=== PATIENT | female | born 1995 | race Caucasian/White ===

== ENCOUNTER 2017-11-11 08:23 | Emergency (ER) | payer OTHER ==
[2017-11-11 08:42] VITALS: BP 111/67; PULSE 104; RESP 18; TEMP 99.3
--- NOTE | 2017-11-11 09:08 | ED ---
General Adult HPI - General Chief complaint: ENT Stated complaint: Face/ear swelling Time Seen by Provider: 11/11/17 08:49 Source: patient, RN notes reviewed Mode of arrival: ambulatory Limitations: no limitations - History of Present Illness Initial comments: 22-year-old female presents to the emergency department with a chief complaint of cough cold -like symptoms with bilateral facial swelling and ear swelling. Patient states it started when she woke up this morning. Yesterday she had a little bit of cough and a low-grade. She states it hurts to touch or move the ears. She denies any nausea vomiting with this. She denies any throat pain. She denies any production of the cough. Family is sick with a cold but this was very unusual states that they should be seen. No significant health history in the child. No other symptoms.Patient denies any recent shortness of breath, chest pain, back pain, abdominal pain, nausea vomiting, numbness or tingling, dysuria or hematuria, constipation or diarrhea, headaches or visual changes, or any other current symptoms. - Related Data Home Medications Medication Instructions Recorded Confirmed D-Methorphan/PE/Acetaminophen 1 cap PO Q6H PRN 11/11/17 11/11/17 [Vicks Dayquil Liquicaps] Loratadine [Claritin] 10 mg PO DAILY 11/11/17 11/11/17 Previous Rx's Medication Instructions Recorded Amoxicillin/Potassium Clav 1 tab PO Q12HR #20 tab 11/11/17 [Augmentin 875-125 Tablet] Allergies Allergy/AdvReac Type Severity Reaction Status Date / Time No Known Allergies Allergy Verified 11/11/17 08:54 Review of Systems ROS Statement: Those systems with pertinent positive or pertinent negative responses have been documented in the HPI. ROS Other: All systems not noted in ROS Statement are negative. Past Medical History Past Medical History: No Reported History History of Any Multi-Drug Resistant Organisms: None Reported Additional Past Surgical History / Comment(s): cyst removed from chest Past Psychological History: No Psychological Hx Reported Smoking Status: Never smoker Past Alcohol Use History: Occasional Past Drug Use History: None Reported General Exam - General Exam Comments Initial Comments: General exam: Alert, active, comfortable in no apparent distress Head: Normocephalic Eyes: Normal reaction of pupils, equal size, normal range of extraocular motion Ears: normal external ear canals, pink tympanic membranes with normal cone of light, no mastoid tenderness patient does appear to have a red swollen bilateral ears. Nose: clear with pink turbinates Throat: no erythema or exudates with normal sized tonsils Neck: no masses, no nuchal rigidity Chest: no chest wall deformity Lungs: equal air entry with no crackles or wheeze CVS: S1 and S2 normal with no audible mumurs, regular rhythm Abdomen: no hepatosplenomegaly, normal bowel sounds, no guarding or rigidity Spine: no scoliosis or deformity Skin: no rashes Neurological: No focal deficits, tone is normal in all 4 extremities Limitations: no limitations Course Vital Signs 11/11/17 08:39 Temperature 99.3 F Pulse Rate 104 H Respiratory 18 Rate Blood Pressure 111/67 O2 Sat by Pulse 98 Oximetry Medical Decision Making - Medical Decision Making 22-year-old female presents for cough cold like symptoms. She has swollen ears. This time we will start her on Augmentin due to the fact concern for bacterial origin of the patient's illness. We did discuss return parameters and follow-up and residential. We discussed all the patient's family's questions. They stated the Ben management this plan. All questions have been answered. They will be discharged. Disposition Clinical Impression: Upper respiratory infection Disposition: HOME SELF-CARE Condition: Stable Instructions: Upper Respiratory Infection (ED) Additional Instructions: Please use medication as discussed. Please follow up with family doctor if symptoms have not improved over the next two days. Please return to the emergency room if your symptoms increase or worsen or for any other concerns. Prescriptions: Amoxicillin/Potassium Clav [Augmentin 875-125 Tablet] 1 tab PO Q12HR #20 tab Referrals: Saul Rand DO [Primary Care Provider] - 1-2 days Time of Disposition: 09:08
== END 2017-11-11 09:18 | disposition home or self-care (01) ==
LOC: EC 08:23
DX: J06.9 Acute upper respiratory infection, unspecified (principal); H93.8X3 Other specified disorders of ear, bilateral; R22.0 Localized swelling, mass and lump, head; Z79.899 Other long term (current) drug therapy
CPT/HCPCS: 99283

== ENCOUNTER 2019-02-07 00:43 | Emergency (ER) | payer BC, OTHER ==
[2019-02-07 00:55] VITALS: BP 127/80; PULSE 74; RESP 20; TEMP 98.2
--- NOTE | 2019-02-07 00:58 | ED ---
Burn/Smoke HPI - General Chief complaint: Burn/Smoke Inhalation Stated complaint: Hand burn injury/[facility]HS Time Seen by Provider: 02/07/19 00:56 Source: patient, family Mode of arrival: ambulatory Limitations: no limitations - History of Present Illness Initial comments: Urine is a pleasant right hand dominant 23-year-old female presents the emergency department today from work for evaluation of possible burn to the middle and ring finger of her right hand. Patient reports that she was working at [employer] when she inadvertently dipped her hand in the deep fryer. She reports that it was very quick she may remove her hand from the fryer, rinsed it in cold water and was given a lidocaine patch by one of her coworkers. She then was advised to come the ER for evaluation. Upon arrival patient reports the fingers are sensitive and painful she's not noticed any blistering or color change to the skin. - Related Data Home Medications Medication Instructions Recorded Confirmed D-Methorphan/PE/Acetaminophen 1 cap PO Q6H PRN 11/11/17 11/11/17 [Vicks Dayquil Liquicaps] Loratadine [Claritin] 10 mg PO DAILY 11/11/17 11/11/17 Previous Rx's Medication Instructions Recorded Amoxicillin/Potassium Clav 1 tab PO Q12HR #20 tab 11/11/17 [Augmentin 875-125 Tablet] Allergies Allergy/AdvReac Type Severity Reaction Status Date / Time No Known Allergies Allergy Verified 02/07/19 00:55 Review of Systems ROS Statement: Those systems with pertinent positive or pertinent negative responses have been documented in the HPI. ROS Other: All systems not noted in ROS Statement are negative. Past Medical History Past Medical History: No Reported History History of Any Multi-Drug Resistant Organisms: None Reported Additional Past Surgical History / Comment(s): cyst removed from chest Past Psychological History: No Psychological Hx Reported Smoking Status: Never smoker Past Alcohol Use History: Occasional Past Drug Use History: None Reported General Exam - General Exam Comments Initial Comments: Physical Exam GENERAL: Patient is well-developed and well-nourished. Patient is nontoxic and well-hydrated and is in no distress. HENT: Normocephalic, Atraumatic. EYES: PERRL, EOMI PULMONARY: Unlabored respirations CARDIOVASCULAR: RRR ABDOMEN: Nondistended SKIN: Skin is clear with no lesions or rashes and otherwise unremarkable. Middle and ring finger are erythematous with no blistering : Deferred NEUROLOGIC: Patient is alert and oriented x3. Moving all extremities spontaneously MUSCULOSKELETAL: Normal extremities with adequate strength and full range of motion. No lower extremity swelling or edema. No calf tenderness. Full range of motion of the fingers on hands bilaterally PSYCHIATRIC: Normal psychiatric evaluation. Limitations: no limitations Limitations: no limitations Course Vital Signs 02/07/19 00:50 Temperature 98.2 F Pulse Rate 74 Respiratory 20 Rate Blood Pressure 127/80 O2 Sat by Pulse 97 Oximetry Medical Decision Making - Medical Decision Making The patient was seen and evaluated history is obtained from the patient inadvertently dipped her hand in hot oil at work, on evaluation it seems to be only superficial burning with some erythema there are no blisters there is no sensation or any signs of deep maddox Patient has full range of motion Patient will be provided with a work note Advised the patient keep a close eye on her hand, if she develops any blistering or decreased range of motion she needs to be reevaluated possibly transferred to burn unit. I do not suspect this happen is that his arty been nearly 2 hours since the burn. There is no blistering therefore patient does not T Do[employer] vaccination All questions pertaining care were answered return parameters were discussed the patient was discharged home in stable condition. Disposition Clinical Impression: Burn of hand including fingers Disposition: HOME SELF-CARE Condition: Stable Instructions (If sedation given, give patient instructions): Superficial Burn (DC), Second Degree Burn (ED) Is patient prescribed a controlled substance at d/c from ED?: No Referrals: Saul Rand DO [Primary Care Provider] - 1-2 days
== END 2019-02-07 01:54 | disposition home or self-care (01) ==
LOC: EC 00:43
DX: T23.131A Burn of first degree of multiple right fingers (nail), not including thumb, initial encounter (principal); T31.0 Burns involving less than 10% of body surface; Z79.899 Other long term (current) drug therapy; X10.2XXA Contact with fats and cooking oils, initial encounter; Y92.511 Restaurant or cafe as the place of occurrence of the external cause; Y99.0 Civilian activity done for income or pay
CPT/HCPCS: 99283

== ENCOUNTER 2021-09-22 16:13 | Emergency (ER) | payer OTHER ==
[2021-09-22 17:27] VITALS: RESP 18
[2021-09-22] MEDS ORDERED: guaiFENesin-DM 600/30MG 1 EACH TAB.ER.12H PO STA (19:37)
[2021-09-22] MEDS ORDERED: dexAMETHasone 2 MG TAB PO STA (19:37)
--- NOTE | 2021-09-22 20:01 | ED ---
URI HPI - General Chief Complaint: Upper Respiratory Infection Stated Complaint: wants covid test Time Seen by Provider: 09/22/21 19:12 Source: patient Mode of arrival: ambulatory Limitations: no limitations - History of Present Illness Initial Comments: 25-year-old female patient presents to the emergency department today for evaluation of cough, fatigue, body aches. States she's had symptoms for the last 3 days. She is concerned she may have COVID-19. Denies taking any medication for her symptoms. Denies any fever or chills. Denies shortness of breath. Denies chance of . She is otherwise healthy does not take any medications. Patient denies any recent rash, chest pain, abdominal pain, nausea, vomiting, diarrhea, constipation, back pain, numbness, tingling, dizziness, weakness, hematuria, dysuria, urinary urgency, urinary frequency, headache, visual changes, or any other complaints. - Related Data Home Medications Medication Instructions Recorded Confirmed D-Methorphan/PE/Acetaminophen 1 cap PO Q6H PRN 11/11/17 11/11/17 [Vicks Dayquil Liquicaps] Loratadine [Claritin] 10 mg PO DAILY 11/11/17 11/11/17 Previous Rx's Medication Instructions Recorded Amoxicillin/Potassium Clav 1 tab PO Q12HR #20 tab 11/11/17 [Augmentin 875-125 Tablet] Dexamethasone 6 mg PO DAILY #9 tablet 09/22/21 guaiFENesin-DM 600/30MG [Mucinex 2 each PO Q12HR PRN #20 tab 09/22/21 Dm] Allergies Allergy/AdvReac Type Severity Reaction Status Date / Time No Known Allergies Allergy Verified 02/07/19 00:55 Review of Systems ROS Statement: Those systems with pertinent positive or pertinent negative responses have been documented in the HPI. ROS Other: All systems not noted in ROS Statement are negative. Past Medical History Past Medical History: No Reported History History of Any Multi-Drug Resistant Organisms: None Reported Additional Past Surgical History / Comment(s): cyst removed from chest Past Psychological History: No Psychological Hx Reported Smoking Status: Former smoker Past Alcohol Use History: Occasional Past Drug Use History: None Reported General Exam Limitations: no limitations General appearance: alert, in no apparent distress, other (This is a well- developed, well-nourished adult female in no acute distress.) ENT exam: Present: normal exam, normal oropharynx, mucous membranes moist Respiratory exam: Present: normal lung sounds bilaterally. Absent: respiratory distress, wheezes, rales, rhonchi, stridor Cardiovascular Exam: Present: regular rate, normal rhythm, normal heart sounds. Absent: systolic murmur, diastolic murmur, rubs, gallop, clicks GI/Abdominal exam: Present: soft, normal bowel sounds. Absent: distended, tenderness, guarding, rebound, rigid Neurological exam: Present: alert, oriented X3, CN II-XII intact Psychiatric exam: Present: normal affect, normal mood Skin exam: Present: warm, dry, intact, normal color. Absent: rash Course Vital Signs 09/22/21 09/22/21 17:25 19:35 Temperature 98.8 F 98.0 F Pulse Rate 94 86 Respiratory 18 18 Rate Blood Pressure 123/80 133/94 O2 Sat by Pulse 96 99 Oximetry Medical Decision Making - Medical Decision Making 25-year-old female patient presented for evaluation of cough, congestion, body aches for the last few days. She did test positive for COVID-19. Chest x-ray is negative. She has normal vital signs. She is given dose of Mucinex DM and a dose of Decadron. She does not meet criteria to receive monoclonal antibodies. She will be discharged with instructions to increase fluids, obtain [id number] vitamins. Return parameters were discussed in detail. She verbalizes understanding and agrees with this plan. My attending is Dr. Chatterjee. - Lab Data Lab Results 09/22/21 Range/Units 17:38 Coronavirus (PCR) Detected A (Not Detectd) - Radiology Data Radiology results: report reviewed, image reviewed One view x-ray of the chest is obtained. Report was reviewed in its entirety. Impression by Dr. Lidnsay shows normal chest. Disposition Clinical Impression: COVID-19 Disposition: HOME SELF-CARE Condition: Good Instructions (If sedation given, give patient instructions): Coronavirus Disease 2019 (COVID-19) Additional Instructions: Tips to help you feel better: -Maintain adequate fluid intake - especially water. -Rest, you are healing your body will require extra sleep. -Eat even if you do not feel like it - broth, jello, toast are fine if you can not eat full meals. -Take tylenol and motrin alternating (if you have no allergies or have not been instructed to avoid these medications) to help with body aches and fevers. -Obtain over the counter vitamin C, zinc, and vitamin D3. -Take medications as prescribed. Follow-up with your primary care physician for recheck in 1-2 days. Return for any new, worsening, or concerning symptoms. Prescriptions: Dexamethasone 6 mg PO DAILY #9 tablet guaiFENesin-DM 600/30MG [Mucinex Dm] 2 each PO Q12HR PRN #20 tab PRN Reason: Cough Is patient prescribed a controlled substance at d/c from ED?: No Referrals: Saul Rand DO [Primary Care Provider] - 1-2 days Time of Disposition: 20:28
--- NOTE | 2021-09-22 20:05 | XR ---
EXAMINATION TYPE: XR chest 1V DATE OF EXAM: 09/22/2021 COMPARISON: NONE HISTORY: Dizziness TECHNIQUE: Single view FINDINGS: Heart and mediastinum are normal. Lungs are clear. Diaphragm is normal. Bony thorax appears normal. IMPRESSION: Normal chest.
[2021-09-22 21:48] VITALS: BP 132/74; PULSE 70; TEMP 98.7
== END 2021-09-22 21:48 | disposition home or self-care (01) ==
LOC: EC 16:13
DX: U07.1 COVID-19 (principal); Z87.891 Personal history of nicotine dependence
CPT/HCPCS: 87635; 71045; 99283; J8540